=== PATIENT | male | born 1935 | race Caucasian/White ===

== ENCOUNTER → 2025-01-05 08:06 | Outpatient (REF) | payer OTHER, SELFPAY | LOC: RST 08:06 | PROVIDERS: ATTENDING PHYSICIAN Specialist; FAMILY PHYSICIAN Family Medicine | DX: G20.A1 Parkinson's disease without dyskinesia, without mention of fluctuations (principal) | CPT/HCPCS: 74230; 92611 ==

== ENCOUNTER 2025-01-05 11:44 | Outpatient (RCR) | payer OTHER, SELFPAY | END 2025-01-05 23:59 | disposition home or self-care (01) | LOC: RST 11:44 | PROVIDERS: ATTENDING PHYSICIAN Specialist; FAMILY PHYSICIAN Family Medicine | DX: G20.A1 Parkinson's disease without dyskinesia, without mention of fluctuations (principal); Z73.6 Limitation of activities due to disability; R13.12 Dysphagia, oropharyngeal phase | CPT/HCPCS: 92526; 92610; 97110; 97112; 97163; 97167; 97530; 97535 ==

== ENCOUNTER 2025-02-09 13:51 | Outpatient (RCR) | payer OTHER, SELFPAY | END 2025-02-09 23:59 | disposition home or self-care (01) | LOC: RST 13:51 | PROVIDERS: ATTENDING PHYSICIAN Specialist; FAMILY PHYSICIAN Family Medicine | DX: G20.A1 Parkinson's disease without dyskinesia, without mention of fluctuations (principal); R13.12 Dysphagia, oropharyngeal phase; Z73.6 Limitation of activities due to disability | CPT/HCPCS: 92526; 97110; 97112; 97116; 97140; 97530; 97535 ==

== ENCOUNTER 2025-03-04 10:53 | Outpatient (RCR) | payer OTHER, SELFPAY | END 2025-03-04 14:09 | disposition home or self-care (01) | LOC: RST 10:53 | PROVIDERS: ATTENDING PHYSICIAN Specialist; FAMILY PHYSICIAN Family Medicine | DX: G20.A1 Parkinson's disease without dyskinesia, without mention of fluctuations (principal); R13.12 Dysphagia, oropharyngeal phase; Z73.6 Limitation of activities due to disability | CPT/HCPCS: 97110; 97112; 97530; 97535 ==